=== PATIENT | female | born 1935 | race Caucasian/White ===

== ENCOUNTER → 2016-02-13 | Outpatient (CLI) | payer MEDICARE, OTHER ==
--- NOTE | 2016-02-13 11:38 | MM ---
Reason for exam: history of breast cancer, mastectomy. Last mammogram was performed 4 years and 10 months ago. History: Patient is postmenopausal and has history of breast cancer at age 73. Family history of breast cancer in 2 maternal aunts. Mastectomy of the left breast, March 09, 2009. Malignant US left guided VAD of the left breast, February 20, 2009. Taking antineoplastic for 1 year beginning at age 73. Physical Findings: Nurse did not find any significant physical abnormalities on exam. MG 3D Diag Mammo W/Cad RT CC and MLO view(s) were taken of the right breast. Prior study comparison: March 31, 2011, right diagnostic mammogram w/CAD. March 28, 2010, right diagnostic mammogram w/CAD. There are scattered fibroglandular densities. No significant changes when compared with prior studies. ASSESSMENT: Benign, BI-RAD 2 RECOMMENDATION: Follow-up diagnostic mammogram of both breasts in 1 year.
== END | disposition home or self-care (01) ==
LOC: RADMAMWWP 10:51
PROVIDERS: ATTEND Family Medicine
DX: N64.4 Mastodynia (principal)
CPT/HCPCS: 77051; G0206; G0279